=== PATIENT | male | born 1980 | race Caucasian/White ===

== ENCOUNTER 2021-02-20 08:53 | Emergency (ER) | payer OTHER ==
[~2021-02-20] VITALS: Ht 190.5 cm; Wt 104.3 kg
[2021-02-20] MEDS ORDERED: TEGRETOL200 MG PO (09:04)
[2021-02-20] MEDS ORDERED: LEVOTHYROXINE50 MC1 PO (09:04)
== END 2021-02-20 15:30 | disposition short-term general hospital (02) ==
LOC: ED 08:53
DX: S32.019A Unspecified fracture of first lumbar vertebra, initial encounter for closed fracture (principal); M51.16 Intervertebral disc disorders with radiculopathy, lumbar region; W18.2XXA Fall in (into) shower or empty bathtub, initial encounter; Z79.899 Other long term (current) drug therapy
CPT/HCPCS: 72148; 80048; 85025; 96374; 96375; 96376; 99285-25; J1100; J1170; J1885; U0003